=== PATIENT | female | born 1995 | race Two or more races ===

== ENCOUNTER 2017-08-11 10:36 | Inpatient (IN) | payer BC ==
[~2017-08-11] VITALS: Ht 157.5 cm; Wt 70.5 kg
[2017-08-11] MEDS ORDERED: OXYTOCIN 30U/ 0.9% NaCL 500ML 500 ML IV ONE (12:51)
[2017-08-11] MEDS ORDERED: MISOPROSTOL 200 MCG TABLET ONE (12:56)
[2017-08-11] MEDS ORDERED: OXYTOCIN 30U/ 0.9% NaCL 500ML 500 ML ONE (12:56)
[2017-08-11] MEDS ORDERED: LIDOCAINE/PF 1%, 30ML ONE (12:56)
[2017-08-11] MEDS ORDERED: NEWBORN KIT ONE (12:56)
[2017-08-11] MEDS ORDERED: FENTANYL PF 100 MCG/2ML IVPush PRN (13:00)
[2017-08-11] MEDS ORDERED: FENTANYL PF 100 MCG/2ML IV PRN (13:00)
[2017-08-11] MEDS ORDERED: PENICILLIN GK 5,000,000 UNITS in SODIUM CHLORIDE 0.9% 100 ML IVPB ONE (13:00)
[2017-08-11] MEDS ORDERED: CALCIUM CARBONATE 500 MG TAB.CHEW PO PRN (13:00)
[2017-08-11] MEDS ORDERED: ONDANSETRON 2MG/ML, 2ML IVPush PRN (13:00)
[2017-08-11] MEDS ORDERED: TERBUTALINE 1 MG/ML, 1ML IVPush PRN (13:00)
[2017-08-11] MEDS: LACTATED RINGERS 1,000 ML IV SCH (13:17)
[2017-08-11 13:47] LABS: BASOPHILS # (AUTO) 0.06 x10^3/uL (0-0.3); BASOPHILS % (AUTO) 0 % (0-1); EOSINOPHILS # (AUTO) 0.01 x10^3/uL (0-0.8); EOSINOPHILS % (AUTO) 0 % (1-7); LYMPHOCYTES # (AUTO) 1.56 x10^3/uL (1-6.1); LYMPHOCYTES % (AUTO) 9 % (22-44); MD NO; MEAN CORPUSCULAR HEMOGLOBIN 31.1 pg (27.0-34.8); MEAN CORPUSCULAR HGB CONC 33.3 g/dL (32.4-35.8); MEAN CORPUSCULAR VOLUME 93.3 fL (80-100); MEAN PLATELET VOLUME 9.6 fL (7.4-10.4); MONOCYTES # (AUTO) 0.73 x10^3/uL (0-1.4); MONOCYTES % (AUTO) 4 % (2-9); NEUTROPHILS # (AUTO) 14.21 x10^3/uL (1.8-8.0); NEUTROPHILS % (AUTO) 86 % (42-75); PLATELET COUNT 185 x10^3/uL (130-400); RED BLOOD COUNT 3.51 x10^6/uL (3.82-5.3); RED CELL DISTRIBUTION WIDTH 13.8 % (9.6-15.2)
[2017-08-11] MEDS: PENICILLIN GK 2,500,000 UNITS in DEXTROSE 5% 100 ML IVPB SCH ×2 (16:50→21:00)
[2017-08-11] MEDS ORDERED: OXYTOCIN 30U/ 0.9% NaCL 500ML 500 ML IV PRN (18:17)
[2017-08-12] MEDS: LACTATED RINGERS 1,000 ML IV SCH ×5 (00:40→12:51)
[2017-08-12] MEDS: PENICILLIN GK 2,500,000 UNITS in DEXTROSE 5% 100 ML IVPB SCH ×4 (00:56→12:50)
[2017-08-12] MEDS ORDERED: BUPIVACAINE 0.25% ONE (01:09)
[2017-08-12] MEDS ORDERED: FENTANYL/BUPIV./NS/PF 250 ML EPIDCONT ONE (01:09)
[2017-08-12] MEDS ORDERED: FENTANYL/BUPIV./NS/PF 250 ML EPIDCONT SCH (01:33)
[2017-08-12] MEDS ORDERED: EPHEDRINE 50 MG/ML, 1ML IVPush PRN (02:00)
[2017-08-12] MEDS ORDERED: LACTATED RINGERS 1,000 ML IVBOLUS PRN (02:00)
[2017-08-12] MEDS: D5%-LACTATED RINGERS 1,000 ML IV SCH ×4 (04:51→12:51)
[2017-08-12] MEDS ORDERED: OXYTOCIN 30U/ 0.9% NaCL 500ML 500 ML ONE (15:59)
[2017-08-12] MEDS: OXYTOCIN 30U/ 0.9% NaCL 500ML 500 ML IV SCH (16:26)
[2017-08-12] MEDS ORDERED: GLYCERIN ADULT SUPP PR PRN (16:30)
[2017-08-12] MEDS ORDERED: BISACODYL 10 MG SUPP PR PRN (16:30)
[2017-08-12] MEDS ORDERED: METHYLERGONOVINE 0.2 MG/ML IM PRN (16:30)
[2017-08-12] MEDS ORDERED: MISOPROSTOL 200 MCG TABLET PR PRN (16:30)
[2017-08-12] MEDS ORDERED: OXYcodone/APAP 5/325MG TABLET PO PRN ×2 (16:30)
[2017-08-12] MEDS ORDERED: ONDANSETRON 2MG/ML, 2ML IV PRN (16:30)
[2017-08-12] MEDS ORDERED: CARBOPROST TROMETHAMINE 250 MCG/ML, 1ML IM PRN (16:30)
[2017-08-12] MEDS ORDERED: ACETAMINOPHEN 325 MG TABLET PO PRN ×2 (16:30)
[2017-08-12] MEDS ORDERED: METOCLOPRAMIDE 5 MG/ML, 2ML IV PRN (16:30)
[2017-08-12 18:15] VITALS: BP 100/63
[2017-08-12 19:45] VITALS: BP 108/68
[2017-08-13 00:15] VITALS: BP 121/79
[2017-08-13] MEDS: OXYTOCIN 30U/ 0.9% NaCL 500ML 500 ML IV SCH ×2 (02:26→12:26)
[2017-08-13 04:20] VITALS: BP 105/63
[2017-08-13 05:38] LABS: MEAN CORPUSCULAR HEMOGLOBIN 31.8 pg (27.0-34.8); MEAN CORPUSCULAR HGB CONC 34.1 g/dL (32.4-35.8); MEAN CORPUSCULAR VOLUME 93.2 fL (80-100); MEAN PLATELET VOLUME 8.7 fL (7.4-10.4); PLATELET COUNT 154 x10^3/uL (130-400); RED BLOOD COUNT 2.88 x10^6/uL (3.82-5.3)
[2017-08-13 06:05] LABS: BASOPHILS # (AUTO) 0.06 x10^3/uL (0-0.3); BASOPHILS % (AUTO) 0 % (0-1); EOSINOPHILS # (AUTO) 0.05 x10^3/uL (0-0.8); EOSINOPHILS % (AUTO) 0 % (1-7); LYMPHOCYTES % (AUTO) 10 % (22-44); MD SCAN; MONOCYTES % (AUTO) 7 % (2-9); NEUTROPHILS # (AUTO) 16.48 x10^3/uL (1.8-8.0); NEUTROPHILS % (AUTO) 82 % (42-75)
[2017-08-13 08:03] VITALS: BP 112/71
[2017-08-13] MEDS: DOCUSATE 100 MG CAPSULE PO PRN ×2 (08:28→21:08)
[2017-08-13] MEDS: IBUPROFEN 600 MG TABLET PO PRN ×2 (08:28→21:08)
[2017-08-13] MEDS: PRENATAL VIT/IRON/FA 1 EACH TABLET PO SCH (08:28)
[2017-08-13 20:50] VITALS: BP 105/64
[2017-08-14 08:00] VITALS: BP 106/62
[2017-08-14] MEDS: IBUPROFEN 600 MG TABLET PO PRN (08:03)
[2017-08-14] MEDS: PRENATAL VIT/IRON/FA 1 EACH TABLET PO SCH (08:03)
[2017-08-14] MEDS: DOCUSATE 100 MG CAPSULE PO PRN (08:03)
[2017-08-14] MEDS ORDERED: IBUP-1222 PO (13:16)
== END 2017-08-14 13:45 | disposition home or self-care (01) | DRG 775 ==
LOC: LDOP 10:36 → LDIP 12:58 → 2NW 08-12 17:59
PROVIDERS: ADMIT Obstetrics & Gynecology; ATTEND Obstetrics & Gynecology
PROC: 10E0XZZ Delivery of Products of Conception, External Approach (ICD-10-PCS; principal; 2017-08-12)
PROC: 0KQM0ZZ Repair Perineum Muscle, Open Approach (ICD-10-PCS; 2017-08-12)
PROC: 0UQMXZZ Repair Vulva, External Approach (ICD-10-PCS; 2017-08-12)
PROC: 3E0R3BZ Introduction of Anesthetic Agent into Spinal Canal, Percutaneous Approach (ICD-10-PCS; 2017-08-12)
PROC: 00HU33Z Insertion of Infusion Device into Spinal Canal, Percutaneous Approach (ICD-10-PCS; 2017-08-12)
DX: O42.92 Full-term premature rupture of membranes, unspecified as to length of time between rupture and onset of labor (principal); D64.9 Anemia, unspecified; O70.0 First degree perineal laceration during delivery; O70.1 Second degree perineal laceration during delivery; O99.02 Anemia complicating childbirth; O99.824 Streptococcus B carrier state complicating childbirth; Z37.0 Single live birth; Z3A.38 38 weeks gestation of pregnancy
CPT/HCPCS: 36415; 84112; 85025; 86850; 86900; 89060; J2540; J2590; J3010; J7120; J7121; Q0114